=== PATIENT | male | born 1955 | race Caucasian/White ===

== ENCOUNTER 2017-10-05 06:12 | Day surgery (SDC) | payer MEDICARE ==
[~2017-10-05] VITALS: Ht 167.6 cm; Wt 77.1 kg
[~2017-10-05 06:12] MED LIST: ADLT ASA LOW81 MG PO; COREG3.125 MG PO; CRESTOR10 MG PO; GLYBURIDE5 MG PO; IPRATROPIU0.5 MG/3 M IN; JANUVIA50 MG PO; LEVEMIR FL100 UNIT/M SC; LYRICA50 MG PO; METFORMIN1000 MG PO; NITRO-BID2.5 M1 PO; NORCO1 TA1 PO; OMEPRAZOLE20 MG PO; PLAVIX75 MG PO; PROTONIX40 M2 PO; SYMBICORT 80-4.5MCG; TRAMADOL HCL50 MG PO; UNKNOWN INSULIN; ZESTRIL/PRI10 MG/TAB PO; [UNRECOGNIZED DRUG - OTHER] PO
[2017-10-05 08:57] VITALS: BP 104/64
== END 2017-10-05 09:13 | disposition home or self-care (01) ==
LOC: ENDO 06:12
PROVIDERS: ATTEND Internal Medicine Gastroenterology
PROC: 0DBN8ZX Excision of Sigmoid Colon, Via Natural or Artificial Opening Endoscopic, Diagnostic (ICD-10-PCS; principal; 2017-10-05)
PROC: 0DB58ZX Excision of Esophagus, Via Natural or Artificial Opening Endoscopic, Diagnostic (ICD-10-PCS; 2017-10-05)
DX: K22.70 Barrett's esophagus without dysplasia (principal); K21.0 Gastro-esophageal reflux disease with esophagitis; K29.70 Gastritis, unspecified, without bleeding; K44.9 Diaphragmatic hernia without obstruction or gangrene; K63.5 Polyp of colon; K64.8 Other hemorrhoids; K64.4 Residual hemorrhoidal skin tags; K76.0 Fatty (change of) liver, not elsewhere classified; I10 Essential (primary) hypertension; E11.9 Type 2 diabetes mellitus without complications; I25.10 Atherosclerotic heart disease of native coronary artery without angina pectoris; I25.2 Old myocardial infarction; J44.9 Chronic obstructive pulmonary disease, unspecified; Z86.010 Personal history of colon polyps; Z80.0 Family history of malignant neoplasm of digestive organs; Z95.1 Presence of aortocoronary bypass graft; Z95.5 Presence of coronary angioplasty implant and graft

== ENCOUNTER → 2018-06-12 | Outpatient (REF) | payer MEDICARE ==
[~2018-06-12] MED LIST changes: +SUCRALFATE1 GM PO
== END | disposition home or self-care (01) ==
LOC: STRESS 07:57 → NUCMED 08:15
PROVIDERS: ATTEND Internal Medicine
DX: I25.728 Atherosclerosis of autologous artery coronary artery bypass graft(s) with other forms of angina pectoris (principal); Z95.1 Presence of aortocoronary bypass graft; R00.2 Palpitations
CPT/HCPCS: A9502; J0706; J2785

== ENCOUNTER → 2018-06-27 | Outpatient (REF) | payer MEDICARE ==
[2018-06-27 12:43] LABS: HEMATOCRIT 43.7 % (39.0-50.0); IMMATURE GRANULOCYTES 1.5 % (0.0-5.0); MEAN CELL VOLUME 93.4 fL CALC (80.0-100.0); MEAN CORPUSCULAR HGB 30.6 pG CALC (26.0-32.0); MEAN CORPUSCULAR HGB CONC 32.7 g/L CALC (32.0-36.0); NEUT# 5.78 thou/uL (1.82-7.42); RED BLOOD COUNT 4.68 mill/uL (4.70-6.10); RED CELL DISTRI WIDTH 13.7 % (11.5-15.5)
[2018-06-27 12:45] LABS: HEMOGLOBIN 14.3 g/dl (14.0-18.0)
[2018-06-27 12:55] LABS: ACT PARTIAL THROMBO TIME 27.5 SECONDS (20.0-32.5); PROTHROMBIN TIME 10.2 SECONDS (9.0-12.5)
[2018-06-27 12:57] LABS: ALBUMIN 4.3 g/dL (3.2-5.0); ALKALINE PHOSPHATASE 73 u/l (38-126); ANION GAP 16 (6-22 (CALC)); BILIRUBIN, TOTAL 0.7 mg/dL (0.0-1.4); BUN 11 mg/dL (8-23); BUN/CREATININE RATIO 18 (12-20 (CALC)); CARBON DIOXIDE 29 mmol/l (22-30); CHLORIDE 96 mmol/l (95-108); CREATININE 0.6 mg/dL (0.7-1.3); GFR > 60 ML/MIN (>=60 (CALC)); GFR FOR AFR.AMER. > 60 ML/MIN (>=60 (CALC)); SGOT/AST 21 u/l (19-48); SODIUM 136 mmol/l (137-146); TOTAL PROTEIN 7.2 g/dL (6.3-8.2)
[2018-06-27 13:00] LABS: CHOLESTEROL HDL RATIO 2.6 (<4.4 (CALC))
[2018-06-27 13:30] LABS: TSH, 3RD GENERATION 1.56 uIU/mL (0.47 - 4.68)
== END | disposition home or self-care (01) ==
LOC: LAB 11:58
PROVIDERS: Internal Medicine; ATTEND Family Medicine
DX: E11.9 Type 2 diabetes mellitus without complications (principal); I10 Essential (primary) hypertension; F10.99 Alcohol use, unspecified with unspecified alcohol-induced disorder; I48.2 Chronic atrial fibrillation; I20.8 Other forms of angina pectoris

== ENCOUNTER 2019-05-22 11:02 | Inpatient (IN) | payer MEDICARE, MEDICAID ==
[~2019-05-22] VITALS: Ht 167.6 cm; Wt 73.5 kg
[~2019-05-22 11:02] MED LIST changes: -NITRO-BID2.5 M1 PO; +NITROSTAT0.4 MG SL; +OMEPRAZOLE10 MG PO; -OMEPRAZOLE20 MG PO; -SYMBICORT 80-4.5MCG; +SYMBICORT1 AE1 IN; -TRAMADOL HCL50 MG PO; +ULTRAM50 M1 PO
[2019-05-22 11:47] VITALS: BP 98/71
--- NOTE | 2019-05-22 12:00 | NUR ---
DIRECT ADMIT, PATIENT A/OX4, PATIENT NO S/S RESP DISTRESS, PATIENT ON ROOM AIR, PATIENT NO C/O PAIN, PATIENT HAS ULCER TO RIGHT FOOT, DRESSING CHANGE TO RIGHT FOOT, WOUND CULTURE SENT, INSERT NEW IV, PATIENT SCHEDULE FOR MRI OF RIGHT FOOT, WILL CONTINUE TO MONITOR, CALL LIGHT WITHIN REACH
[2019-05-22 12:17] LABS: HEMATOCRIT 37.9 % (39.0-50.0); HEMOGLOBIN 12.2 g/dl (14.0-18.0); IMMATURE GRANULOCYTES 0.5 % (0.0-5.0); MEAN CELL VOLUME 88.6 fL CALC (80.0-100.0); MEAN CORPUSCULAR HGB 28.5 pG CALC (26.0-32.0); MEAN CORPUSCULAR HGB CONC 32.2 g/L CALC (32.0-36.0); NEUT# 7.05 thou/uL (1.82-7.42); RED BLOOD COUNT 4.28 mill/uL (4.70-6.10); RED CELL DISTRI WIDTH 14.3 % (11.5-15.5)
[2019-05-22 12:55] LABS: ALBUMIN 3.6 g/dL (3.2-5.0); ALKALINE PHOSPHATASE 90 u/l (38-126); ANION GAP 15 (6-22 (CALC)); BILIRUBIN, TOTAL 0.4 mg/dL (0.0-1.4); BUN 6 mg/dL (8-23); BUN/CREATININE RATIO 10 (12-20 (CALC)); CARBON DIOXIDE 27 mmol/l (22-30); CHLORIDE 96 mmol/l (95-108); CREATININE 0.6 mg/dL (0.7-1.3); GFR > 60 ML/MIN (>=60 (CALC)); GFR FOR AFR.AMER. > 60 ML/MIN (>=60 (CALC)); POTASSIUM 5.1 mmol/l (3.5-5.1); SGOT/AST 20 u/l (19-48); SODIUM 132 mmol/l (137-146); TOTAL PROTEIN 6.8 g/dL (6.3-8.2)
--- NOTE | 2019-05-22 13:42 | NUR ---
S: SORAYA GRAHAM is a 63 M who presents with right foot wound. He has a history of IDDM, HTN, CAD, COPD/EMPHYSEMA. All medications in patient's chart were reviewed. O: VS: BP: 98/71mmHg, P: 98 bpm, RR: 18 breaths/min, T: 97.9 W: 73.482 kg, HT: 66 in, Scr: 0.6 mg/dL, CrCl: 132.67 ml/min A: Wound culture is pending. P: Patient is on Cefepime 2 gm IV Q8H. Vancomycin ordered for pharmacy to dose. Start Vancomycin 1250mg IV Q12H. Vancomycin trough is drawn before the 4th dose on 05-24-19 at 01:30. Vancomycin goal trough is between 15-20 mcg/ml. Pharmacy will follow and or advise on antibiotics use as needed.
[2019-05-22 15:00] VITALS: BP 103/62
[2019-05-22 16:12] LABS: URINE BILIRUBIN - DIPSTICK NEGATIVE (NEGATIVE); URINE BLOOD DIPSTICK NEGATIVE (NEGATIVE); URINE COLOR YELLOW; URINE GLUCOSE - DIPSTICK NEGATIVE (NEGATIVE); URINE KETONE NEGATIVE (NEGATIVE); URINE LEUK ESTERASE NEGATIVE (NEGATIVE); URINE NITRITE - DIPSTICK NEGATIVE (Negative); URINE PROTEIN - DIPSTICK NEGATIVE (NEG-TRACE)
--- NOTE | 2019-05-22 17:00 | NUR ---
PATIENT A/OX4, NO C/O PAIN, NO S/S RESP DISTRESS, PATIENT TOLERATED IV ANTIBOTICS, WILL CONTINUE TO MONITOR PATIENT, CALL LIGHT WITHIN REACH
[2019-05-22 19:10] VITALS: BP 124/78
--- NOTE | 2019-05-22 19:30 | NUR ---
CHANGE OF SHIFT REPORT RECEIVED FROM MANJINDER ESCAMILLA. PT IN ROOM, ABLE TO MAKE NEEDS KNOWN. NO S/S OF DISTRESS
--- NOTE | 2019-05-23 | NUR ---
PATIENT RESTING COMFORTABLY. NO S/S OF DISTRESS
[2019-05-23 04:05] VITALS: BP 120/68
--- NOTE | 2019-05-23 04:24 | NUR ---
PATIENT RESTING COMFORTABLY. NO S/S OF DISTRESS. CRIMPING PRESS OPERATOR WILL CONTINUE TO MONITOR
[2019-05-23 07:45] VITALS: BP 144/78
--- NOTE | 2019-05-23 09:00 | NUR ---
PATIENT A/OX4, NO C/O PAIN, NO S/S RESP DISTRESS, PATIENT ON ROOM AIR, PATIENT C/O PAIN RIGHT FOOT TREAT PATIENT PAIN PER MD ORDERS, WILL REASSES PAIN LEVEL, CHANGED DRESSING OF RIGHT FOOT ULCER, PATIENT BLOOD GLUCOSE WAS ELEVATED, CALL LIGHT WITHIN REACH
--- NOTE | 2019-05-23 12:46 | NUR ---
PATIENT A/O X4, NO C/O PAIN AFTER PRN MED WAS GIVEN, NO S/S RESP DISTRESS, PATIENT RIGHT FOOT IS ELEVATED, CALL LIGHT WITHIN REACH
[2019-05-23 14:40] VITALS: BP 118/70
[2019-05-23] MEDS ORDERED: CRESTOR10 MG PO (16:55)
[2019-05-23] MEDS ORDERED: VICTOZA18 MG/3 ML SC (16:55)
[2019-05-23] MEDS ORDERED: PROAIR HFA IN (16:56)
[2019-05-23 19:00] VITALS: BP 131/72
--- NOTE | 2019-05-23 19:05 | NUR ---
REPORT RECEIVED FROM MANJINDER ESCAMILLA. PT RESTING IN BED, NO S/S OF DISTRESS AT THIS TIME. WILL CONTINUE TO MONITOR.
--- NOTE | 2019-05-23 19:36 | NUR ---
PT RESTING IN BED, ALERT AND ORIENTED. RESPIRATIONS EVEN AND UNLABORED. WHEEZES NOTED IN UPPER LUNGS. PT DENIES ANY PAIN OR DISCOMFORT AT THIS TIME. PEDAL PULSES WEAK. PT PROVIDED WITH COFFEE PER REQUEST. SAFETY PRECAUTIONS IN PLACE. WILL CONTINUE TO MONITOR.
--- NOTE | 2019-05-24 00:12 | NUR ---
PT WATCHING TV, NO S/S OF DISTRESS AT THIS TIME, PT DENIES ANY PAIN OR DISCOMFORT. SAFETY PRECAUTIONS IN PLACE. WILL CONTINUE TO MONITOR.
--- NOTE | 2019-05-24 04:05 | NUR ---
PT RESTING IN BED. NO S/S OF DISTRESS AT THIS TIME. SAFETY PRECAUTIONS IN PLACE. WILL CONTINUE TO MONITOR.
[2019-05-24 04:40] VITALS: BP 123/59
[2019-05-24 06:28] LABS: HEMATOCRIT 35.1 % (39.0-50.0); HEMOGLOBIN 11.3 g/dl (14.0-18.0); MEAN CELL VOLUME 89.1 fL CALC (80.0-100.0); MEAN CORPUSCULAR HGB 28.7 pG CALC (26.0-32.0); MEAN CORPUSCULAR HGB CONC 32.2 g/L CALC (32.0-36.0); RED BLOOD COUNT 3.94 mill/uL (4.70-6.10); RED CELL DISTRI WIDTH 14.3 % (11.5-15.5)
[2019-05-24 06:41] LABS: BUN 6 mg/dL (8-23); BUN/CREATININE RATIO 13 (12-20 (CALC)); CALCULATED LDLCHOLESTEROL 65 mg/dL (62-129 (CALC)); CARBON DIOXIDE 28 mmol/l (22-30); CHLORIDE 102 mmol/l (95-108); CHOLESTEROL HDL RATIO 2.7 (<4.4 (CALC)); CREATININE 0.5 mg/dL (0.7-1.3); GFR > 60 ML/MIN (>=60 (CALC)); GFR FOR AFR.AMER. > 60 ML/MIN (>=60 (CALC)); HDL CHOLESTEROL 47 mg/dL (>=40); MAGNESIUM 1.4 mg/dL (1.6-2.3); SODIUM 135 mmol/l (137-146); TOTAL CHOLESTEROL 126 mg/dl (0-199); TOTAL TRIGLYCERIDES 71 mg/dl (30-149); VLDL CHOLESTROL 14 mg/dl (4-45 (CALC))
[2019-05-24 06:46] LABS: ANION GAP 9 (6-22 (CALC)); POTASSIUM 3.9 mmol/l (3.5-5.1)
[2019-05-24 06:58] LABS: ALBUMIN 2.9 g/dL (3.2-5.0); C-REACTIVE PROTEIN 2.6 mg/dL (0-0.9); TOTAL PROTEIN 5.9 g/dL (6.3-8.2)
[2019-05-24 06:59] LABS: BILIRUBIN, TOTAL 0.2 mg/dL (0.0-1.4)
[2019-05-24 07:55] VITALS: BP 115/68
--- NOTE | 2019-05-24 07:55 | NUR ---
PATIENT ASLEEP ON ROUNDS. AWAKENS TO NAME. NO COMPLAINTS OF ANY PAIN OR DISCOMFORTS. RESP NON-LABORED. MOIST, NON-PRODUCTIVE COUGH PRESENT. BREATH SOUNDS DIMINISHED AND SLT COARSE. RT FOTT DSG CDI. SALINE LOCK IN , SITE BENIGN. DISCUSSED PLAN OF CARE. DENIES NEEDS AT THS TIME. CALL BO IN REACH.
[2019-05-24 08:00] VITALS: BP 115/68
--- NOTE | 2019-05-24 12:05 | NUR ---
PATIENT FOUND WITH LH SALINE LOCK DILODGED WITH CATHETER INTACT. NEW SALINE LOCK STARTED IN LAC X1 ATTEMPT.
--- NOTE | 2019-05-24 14:00 | NUR ---
FAMILY VISITING PATIENT RESTING WITHOUT COMPLAINTS.
[2019-05-24 15:05] VITALS: BP 117/66
--- NOTE | 2019-05-24 16:00 | NUR ---
RIGHT FOOT DRESSING CHANGED PER DRS ORDERS. SMALL AMOUNT OF ESTRELLA DRAINAGE NOTED ON OLD DSG. WOUND RINSED WITH NS AND PATTED DRY. WOUND BED WHITE, NO ODOR NOTED. NICKEL THICK SANTYL OINT APPLIED TO WOUND BED WITH STERILE COTTON APPLICATOR. COVERED WITH 4X4 LIGHTLY MOISTENED WITH NS COVERED WITH ABD AND SECURED WITH LIZETH. PATIENT TOLERATED DSG CHANGED WELL. CALL TO DR ZABALA TO INFORM OF DSG CHANGE AND WOUND STATUS.
[2019-05-24 18:40] VITALS: BP 130/72
--- NOTE | 2019-05-24 19:05 | NUR ---
REPORT RECEIVED FROM MANJINDER WORRELL. PT RESTING IN BED. NO S/S OF DISTRESS AT THIS TIME. SAFETY PRECAUTIONS IN PLACE. WILL CONTINUE TO MONITOR.
--- NOTE | 2019-05-24 19:45 | NUR ---
PT RESTING IN BED, ALERT AND ORIENTED. RESPIRATIONS EVEN AND UNLABORED ON RA. LUNGS SOUND DIMINISHED. PT DENIES ANY PAIN OR DISCOMFORT AT THIS TIME. SAFETY PRECAUTIONS IN PLACE. WILL CONTINUE TO MONITOR
--- NOTE | 2019-05-25 00:13 | NUR ---
PT RESTING IN BED NO S/S OF DISTRESS AT THIS TIME. SAFETY PRECAUTIONS IN PLACE. WILL CONTINUE TO MONITOR.
--- NOTE | 2019-05-25 04:15 | NUR ---
PT RESTING IN BED. RESPIRATONS EVEN AND UNLABORED ON RA. NO S/S OF DISTRESS AT THIS TIME.
[2019-05-25 04:21] VITALS: BP 135/57
[2019-05-25 04:47] LABS: HEMATOCRIT 36.4 % (39.0-50.0); HEMOGLOBIN 11.6 g/dl (14.0-18.0); MEAN CELL VOLUME 90.8 fL CALC (80.0-100.0); MEAN CORPUSCULAR HGB 28.9 pG CALC (26.0-32.0); MEAN CORPUSCULAR HGB CONC 31.9 g/L CALC (32.0-36.0); RED BLOOD COUNT 4.01 mill/uL (4.70-6.10); RED CELL DISTRI WIDTH 14.3 % (11.5-15.5)
[2019-05-25 05:03] LABS: ANION GAP 11 (6-22 (CALC)); BUN 7 mg/dL (8-23); BUN/CREATININE RATIO 17 (12-20 (CALC)); CARBON DIOXIDE 26 mmol/l (22-30); CHLORIDE 100 mmol/l (95-108); CREATININE 0.4 mg/dL (0.7-1.3); GFR > 60 ML/MIN (>=60 (CALC)); GFR FOR AFR.AMER. > 60 ML/MIN (>=60 (CALC)); MAGNESIUM 1.6 mg/dL (1.6-2.3); POTASSIUM 4.2 mmol/l (3.5-5.1); SODIUM 133 mmol/l (137-146)
[2019-05-25 09:34] VITALS: BP 127/66
[2019-05-25 15:50] VITALS: BP 139/83
--- NOTE | 2019-05-25 17:35 | NUR ---
HEAD TO TOE COMPLETED. POC REVIEWED PATIENT. PATIENT VERBALIZED UNDERSTANDIG.NO C/O PAIN TODAY. NO NEW SKIN ISSUES. WOUND CARE PROVIDED. NO S/S OF RESP DISTRESS. POSTIVE FOR BOWEL SOUNDS
--- NOTE | 2019-05-25 17:52 | NUR ---
WOUNDCARE PROVIDED TO PATIENT RIGHT FOOT AND DOOPLER USED TO CHECK FOR A PULSE PER ORDER
[2019-05-25 19:14] VITALS: BP 131/81
--- NOTE | 2019-05-25 19:42 | NUR ---
PT. SITTING UP WATCHING TV, NO DISTRESS NOTED; DENIES NEEDS/PAIN. ASSESSMENT COMPLETED. DRESSING TO RIGHT FOOT CDI; IV SITE PATENT AND SL. ENCOURAGED TO CALL FOR ANY NEEDS. CALL LIGHT IS IN REACH.
--- NOTE | 2019-05-25 23:08 | NUR ---
PT. RESTING IN BED WITH EYES CLOSED; RESP. EVEN AND UNLABORED.
[2019-05-26 03:35] VITALS: BP 107/58
--- NOTE | 2019-05-26 03:40 | NUR ---
EMERGENCY COMMUNICATIONS DISPATCHER IN AT BEDSIDE OBTAINING VS. NO DISTRESS NOTED; DENIES NEEDS. CALL LIGHT IS IN REACH.
[2019-05-26 05:18] LABS: HEMOGLOBIN 11.3 g/dl (14.0-18.0); MEAN CELL VOLUME 89.3 fL CALC (80.0-100.0); MEAN CORPUSCULAR HGB 28.8 pG CALC (26.0-32.0); MEAN CORPUSCULAR HGB CONC 32.3 g/L CALC (32.0-36.0); RED BLOOD COUNT 3.92 mill/uL (4.70-6.10); RED CELL DISTRI WIDTH 14.2 % (11.5-15.5)
[2019-05-26 05:36] LABS: ANION GAP 10 (6-22 (CALC)); BUN 7 mg/dL (8-23); BUN/CREATININE RATIO 17 (12-20 (CALC)); CARBON DIOXIDE 28 mmol/l (22-30); CHLORIDE 101 mmol/l (95-108); CREATININE 0.4 mg/dL (0.7-1.3); GFR > 60 ML/MIN (>=60 (CALC)); GFR FOR AFR.AMER. > 60 ML/MIN (>=60 (CALC)); SODIUM 135 mmol/l (137-146)
--- NOTE | 2019-05-26 05:46 | NUR ---
SCHED ANTIBIOTIC HUNG. DENIES NEEDS/PAIN. CALL LIGHT IS IN REACH.
[2019-05-26 07:50] VITALS: BP 137/64
--- NOTE | 2019-05-26 08:00 | NUR ---
PATIENT A/OX4, NO C/O PAIN, NO C/O PAIN IN RIGHT FOOT, NO S/S RESP DISTRESS, PATIENT ON ROOM AIR, PATIENT ON ANTIBOTICS FOR INFECTED RIGHT FOOT WOUND, PATIENT TOLERATING ANTIBOTICS, WILL CONTINUE TO MONITOR PATIENT, CALL LIGHT WITHIN REACH
--- NOTE | 2019-05-26 09:50 | NUR ---
PATIENT A/OX4, NO S/S RESP DISTRESS, NO C/O PAIN, ASSISTED DR. BERG WITH DRESSING CHANGE TO RIGHT FOOT, PATIENT TOLERATING DRESSING CHANGE WITHOUT C/O PAIN, NEW PHOTO OF RIGHT FOOT IN CHART, WILL CONTINUE TO MONITOR PATIENT, CALL LIGHT WITHIN REACH
--- NOTE | 2019-05-26 11:10 | NUR ---
PATIENT A/OX4, NO C/O PAIN, NO S/S RESP DISTRESS, PATIENT ON ROOM AIR, PATIENT HAS NO C/O PAIN OF RIGHT FOOT ULCER, PATIENT BLOOD GLUCOSE 166, PATIENT ON ANTIBOTICS FOR ECOLI IN THE WOUND, WILL CONTINUE TO MONITOR PATIENT CALL LIGHT WITHIN REACH
[2019-05-26] MEDS ORDERED: AUGMENTIN XR PO (14:03)
[2019-05-26 16:30] VITALS: BP 132/66
--- NOTE | 2019-05-26 16:45 | NUR ---
PATIENT A/OX4, NO C/O PAIN, NO S/S RESP DISTRESS, PATIENT ON ROOM AIR, PATIENT DISCHANGE TO HOME WITH HOME HEALTH, EDUCATED THE PATIENT DISCHARGED INSTRUCTIONS, PROVIDED PATIENT WITH WRITTEN EDUCATIONAL MATERIAL, PATIENT UNDERSTOOD DISCHARGED INSTRUCTIONS, ASSISTED PATIENT OFF FLOOR VIA WHEELCHAIR, PATIENT WAS ACCOMPANIED BY SIGNIFICANT OTHER
[2019-11-25] MEDS ORDERED: HYDROCODONE/ACE1 TAB PO (12:46)
== END 2019-05-26 17:00 | disposition home health service (06) | DRG 300 ==
LOC: MS2 11:02
PROVIDERS: Internal Medicine Infectious Disease; Nurse Practitioner Family; ADMIT Internal Medicine; ATTEND Internal Medicine
PROC: 0HBMXZZ Excision of Right Foot Skin, External Approach (ICD-10-PCS; principal; 2019-05-23)
DX: E11.52 Type 2 diabetes mellitus with diabetic peripheral angiopathy with gangrene (principal); I96 Gangrene, not elsewhere classified; L97.419 Non-pressure chronic ulcer of right heel and midfoot with unspecified severity; L03.115 Cellulitis of right lower limb; E11.621 Type 2 diabetes mellitus with foot ulcer; E11.65 Type 2 diabetes mellitus with hyperglycemia; I11.0 Hypertensive heart disease with heart failure; I50.9 Heart failure, unspecified; I25.10 Atherosclerotic heart disease of native coronary artery without angina pectoris; J43.9 Emphysema, unspecified; E11.42 Type 2 diabetes mellitus with diabetic polyneuropathy; E78.5 Hyperlipidemia, unspecified; F17.200 Nicotine dependence, unspecified, uncomplicated; B96.20 Unspecified Escherichia coli [E. coli] as the cause of diseases classified elsewhere; Z95.1 Presence of aortocoronary bypass graft; Z95.5 Presence of coronary angioplasty implant and graft; Z95.810 Presence of automatic (implantable) cardiac defibrillator; Z79.4 Long term (current) use of insulin
CPT/HCPCS: J0692; J3370; J3475; Q3014

== ENCOUNTER 2019-06-16 09:45 | Inpatient (IN) | payer MEDICARE, MEDICAID ==
[~2019-06-16] VITALS: Ht 167.6 cm; Wt 76.0 kg
[~2019-06-16 09:45] MED LIST changes: +AUGMENTIN XR PO; +PROAIR HFA IN; +VICTOZA18 MG/3 ML SC
--- NOTE | 2019-06-16 10:17 | NUR ---
Pt to room # 6 for bedside triage
[2019-06-16 10:59] LABS: HEMATOCRIT 38.5 % (39.0-50.0); HEMOGLOBIN 12.5 g/dl (14.0-18.0); IMMATURE GRANULOCYTES 0.4 % (0.0-5.0); MEAN CELL VOLUME 87.3 fL CALC (80.0-100.0); MEAN CORPUSCULAR HGB 28.3 pG CALC (26.0-32.0); MEAN CORPUSCULAR HGB CONC 32.5 g/L CALC (32.0-36.0); NEUT# 7.9 thou/uL (1.82-7.42); RED BLOOD COUNT 4.41 mill/uL (4.70-6.10); RED CELL DISTRI WIDTH 14.5 % (11.5-15.5)
[2019-06-16 11:10] LABS: ANION GAP 12 (6-22 (CALC)); BUN 6 mg/dL (8-23); BUN/CREATININE RATIO 10 (12-20 (CALC)); CARBON DIOXIDE 30 mmol/l (22-30); CHLORIDE 95 mmol/l (95-108); CREATININE 0.6 mg/dL (0.7-1.3); GFR > 60 ML/MIN (>=60 (CALC)); GFR FOR AFR.AMER. > 60 ML/MIN (>=60 (CALC)); POTASSIUM 4.7 mmol/l (3.5-5.1); SODIUM 133 mmol/l (137-146)
--- NOTE | 2019-06-16 11:10 | NUR ---
PT RESTING ON STRETCHER; NO S/S OF DITRESS NOTED; RIGHT LEG [id number]
[2019-06-16] MEDS ORDERED: CARAFATE1 G1 PO (11:17)
--- NOTE | 2019-06-16 12:05 | NUR ---
PT MEDICATED PER MAR FOR PAIN TO RIGHT FOOT RATING 6 OUT OF 10; MONITORING DEVICES IN PLACE; VSS; CALL LIGHT WITHIN REACH;WILL CONTINUE TO MONITOR
--- NOTE | 2019-06-16 13:00 | NUR ---
PTRESTING ON STRETCHER; STATES PAIN IS 4 OUT OF 10; VSS;PT ADVISED OF CONTINUED WAIT TIME FOR ADMISSION; CALL LIGHT WITHIN REACH; WILL CONTINUE TO MONITOR
--- NOTE | 2019-06-16 13:41 | NUR ---
PACEMAKER INTEROGATED AT THIS TIME AT BEDSIDE
[2019-06-16 14:00] VITALS: BP 125/63
--- NOTE | 2019-06-16 14:00 | NUR ---
Admission Note Report Given to: MANJINDER RUCKER Transported by: X Wheelchair Stretcher Transported with: X Nurse Transporter X Patent IV O2 X Buildings And Grounds Director Location: ICU X MS2
--- NOTE | 2019-06-16 14:13 | NUR ---
I LEFT A DETAILED MESSAGE WITH A DIRECT CALL BACK NUMBER TO DR. VOSS OFFICE. I AM WAITING FOR SOMEONE TO CALL ME BACK TO VERIFY THE CONSULTATION ORDERED FOR THIS PT. I CALLED #[phone].
--- NOTE | 2019-06-16 15:00 | NUR ---
PT ARRIVES TO ROOM 289 FROM ER ACCOMPANIED BY DAVID DUNBAR. PT IS ALERT AND ORIENTED X 3, ACCOMPANIED BY HIS GIRLFRIEND. RIGHT FOOT SITE APPEARS DRY, NOT REDDENED SIGNIFICANTLY AROUND CIRCUMFERENCE. NO PAIN PER NEUROPATHY, PT STATES.
--- NOTE | 2019-06-16 15:24 | NUR ---
I SPOKE WITH @0011 ABOUT THE CONSULTATION ORDERED FOR RIGHT LOWER EXTREMITY CELLULITUS. HE VERBALLY STATED THAT HE WAS AWARE OF THE CONSULTATION AND WOULD SEE HIM TOMORROW 06/17/19 AT SOME POINT IN THE DAY. I CALLED HIS DIRECT CELL #[phone].
--- NOTE | 2019-06-16 17:54 | NUR ---
PT RESTS IN THE BED, NO DISTRESS, NO COMPLAINTS.
[2019-06-16 19:04] VITALS: BP 132/56
--- NOTE | 2019-06-16 21:54 | NUR ---
PATIENT RESTING IN BED AT THIS TIME. MEDICATED WITH SONATA 5MG PO FOR SLEEP. ACCU-CHECK TONIGHT IS 126-NO COVERAGE REQUIRED AND PATIENT ALSO REFUSED LEVEMIR-"STATES THAT HE DOESN'T WANT TO GO TOO LOW". PATIENT ALSO OFFERED TYLENOL FOR LEFT HIP PAIN-PATIENT ALSO REFUSED TYLENOL AND STATES "IT DOESN'T DO ANYTHING FOR PAIN. OFFERED HOT OR COLD PACK-PATIENT ALSO REFUSED THESE. SAFETY PRECAUTIONS REINFORCED. CALL LIGHT IN REACH. WILL CONT TO MONITOR.
--- NOTE | 2019-06-17 00:02 | NUR ---
PATIENT RESTING IN BED-APPEARS SLEEPING WITH EYES CLOSED. RESPS ARE EVEN AND UNLABORED. IVF PATENT WITH ZOSYN INFUSING AT THIS TIME VIA LEFT AC SITE. TELE MONITOR IN PLACE. VOIDING QS CLEAR YELLOW URINE IN URINAL. CALL LIGHT IN REACH. WILL CONT TO MONITOR.
[2019-06-17 00:15] VITALS: BP 119/56
[2019-06-17 04:00] VITALS: BP 130/75
--- NOTE | 2019-06-17 04:30 | NUR ---
PATIENT RESTING IN BED WATCHING TV AT THISTIME. TELE MONITOR IN PLACE. IV SITE TO LEFT AC INTACT WITH IVF NS PATENT ANDINFUSING AT 100CC/HR. SAFETY PRECAUTIONS REINFORCED. CALL LIGHT IN REACH. WILL CONT TO MONITOR.
[2019-06-17 08:00] VITALS: BP 134/72
--- NOTE | 2019-06-17 09:00 | NUR ---
PT AT REST IN THE BED, NO DISTRESS. LUNGS CLEAR, RA. RIGHT FOOT WOUND IS DRY, NO PAIN OR DRAINAGE FROM SAME. GIRLFRIEND AT BEDSIDE.
[2019-06-17 10:40] VITALS: BP 133/74
--- NOTE | 2019-06-17 15:41 | NUR ---
S: SORAYA GRAHAM is a 63 M who presents with cellulitis. He has a history of type 2 diabetes, COPD, emphysema, hypertension, neuropathy, and cellulitis. All medications in patient's chart were reviewed. O: VS: BP 133/74mmHg, P 73 bpm, RR 19 breaths/min,T 97.4 degrees F W 76.005 kg, HT 167.64 cm, Scr= 0.6 L,CrCl= 137 ml/min A: Blood cultures preliminary show no growth after 24 hours. P: Patient is on zosyn 3.375 gm q6h Vancomycin ordered for pharmacy to dose. Start Vancomycin 1,250 mg IV q12h @ 1000, 2200 Vancomycin trough is drawn before the 4th dose on 06/18/19 at 2130. Vancomycin goal trough is between 10-15 mcg/ml. Pharmacy will follow and or advise on antibiotics use as needed.
--- NOTE | 2019-06-17 16:15 | NUR ---
PT HAS BEEN TO CT AND BACK FOR RIGHT FOOT EVALUATION. PT PROVIDED PERCOCET FOR PAIN RELIEF RECENTLY.
[2019-06-17 16:16] VITALS: BP 145/78
--- NOTE | 2019-06-17 19:30 | NUR ---
PATIENT RESTING IN BED AT THIS TIME WATCHING TV. AWAKE ALERT AND ORIENTEDX3. PATIENT PLATINUM EVEN WITH HEARING AIDS. TELE MONITOR IN PLACE. IVF PATENT AND INFUSING VIA LEFT AC SITE ORDERED. SITE IS HEALTHY AT THIS TIME. RIGHT FOOT DRESSING IS CDI AT THIS TIME. VOIDING QS YELLOW URINE IN URINAL. SAFETY PRECAUTIONS REINFORCED. CALL LIGHT IN REACH. WILL CONT TO MONITOR.
[2019-06-17 19:54] VITALS: BP 127/75
--- NOTE | 2019-06-17 21:45 | NUR ---
PATIENT RESTING IN BED WATCHING [id number]-COVERED WITH NOVALOG 3UNITS PER SS COVERAGE PROTOCOL AND GIVEN LEVEMIR 30UNITS SQ ORDERED. PATIENT MEDICATED FOR RIGHT FOOT PAIN WITH PERCOCET AND FOR SLEEP WITH SONATA. CALL LIGHT IN REACH. WILL CONT TO MONITOR.
[2019-06-18] VITALS (8 sets, daily range): BP systolic 99–177; BP diastolic 65–94
--- NOTE | 2019-06-18 01:16 | NUR ---
PATIENT APPEARS SLEEPING AT THIS TIME. RESP EVEN AND UNLABORED. TELE MONITOR IN PLACE. CALL LIGHT IN REACH. WILL CONT TO MONITOR.
--- NOTE | 2019-06-18 04:33 | NUR ---
PATIENT APPEARS SLEEPING AT THIS TIME WITH EYES CLOSED. RESPS ARE EVEN AND UNLABORED. TELE MONITOR IN PLACE. DRESSING TO RIGHT FOOT INTACT. IVF PATENT AND INFUSING VIA LEFT AC SITE. SITE APPEARS HEALTHY AT THIS TIME. CALL LIGHT IN REACH. WILL CONT TO MONITOR.
[2019-06-18 05:37] LABS: HEMATOCRIT 33.3 % (39.0-50.0); MEAN CELL VOLUME 90.7 fL CALC (80.0-100.0); MEAN CORPUSCULAR HGB 28.6 pG CALC (26.0-32.0); MEAN CORPUSCULAR HGB CONC 31.5 g/L CALC (32.0-36.0); RED BLOOD COUNT 3.67 mill/uL (4.70-6.10)
[2019-06-18 05:41] LABS: HEMOGLOBIN 10.5 g/dl (14.0-18.0)
[2019-06-18 06:09] LABS: BUN 9 mg/dL (8-23); BUN/CREATININE RATIO 16 (12-20 (CALC)); CARBON DIOXIDE 26 mmol/l (22-30); CREATININE 0.5 mg/dL (0.7-1.3); GFR > 60 ML/MIN (>=60 (CALC)); GFR FOR AFR.AMER. > 60 ML/MIN (>=60 (CALC)); SODIUM 138 mmol/l (137-146)
[2019-06-18 06:38] LABS: ANION GAP 9 (6-22 (CALC)); CHLORIDE 107 mmol/l (95-108); POTASSIUM 3.7 mmol/l (3.5-5.1)
--- NOTE | 2019-06-18 07:30 | NUR ---
PATIENT A/OX4, NO S/S RESP DISTRESS, PATIENT ON ROOM AIR, PATIENT C/O 5/10 PAIN IN RIGHT FOOT TREATED PATIENT PAIN PER MD ORDERS, PATIENT HEART RHYTHM IS PACED WITH PVC, DRESSING TO RIGHT FOOT DRY CLEAN AND INTACT, IVF INFUSING VIA IV WITHOUT COMPLICATIONS, WILL CONTINUE TO MONITOR PATIENT, CALL LIGHT WITHIN REACH
--- NOTE | 2019-06-18 12:00 | NUR ---
PATIENT A/0X4, NO S/S RESP DISTRESS, PATIENT ON ROOM AIR, PATIENT C/O 07/24 PAIN TO RIGHT FOOT WITH MOVEMENT, PATIENT C/O CONSTIPATION TREATED PATIENT WITH MOM, PATIENT LAST BOWEL MOVEMENT 06/15/19, PATIENT IS STAND BY ASSIST TO RESTROOM, RIGHT LEG IS ELEVATED, WILL CONTINUE TO MONITOR PATIENT, CALL LIGHT WITHIN REACH
--- NOTE | 2019-06-18 14:01 | NUR ---
CALLED DR. EASTMAN OFFICE REGARDING CONSULTATION FOR CARDIAC CLEARANCE. SPOKE TO KRYSTAL GAVE INFORMATION STATED SHE WILLGIVE HIM THE MESSAGE.
--- NOTE | 2019-06-18 17:30 | NUR ---
PATIENT A/OX4, PATIENT C/O 09/23 PAIN TO RIGHT FOOT, NOTIFIED PNEUMATIC TOOL REPAIRER ABOUT PATIENT PAIN LEVEL, PNEUMATIC TOOL REPAIRER CHANGED PERCOCET PO Q6 PRN TO PERCOCET PO Q4 PRN FOR PAIN, PATIENT BLOOD GLUCOSE 303 TREATED PATIENT PAIN PER MD ORDERS, URINE OBTAIN FOR DRUG TEST PER MD ORDERS,PATIENT HAD AN LARGE BOWEL MOVEMENT AFTER MOM WAS GIVEN, PATIENT RIGHT FOOT WARM TO TOUCH AND SWOLLEN NOTIFIED PNEUMATIC TOOL REPAIRER PATIENT RIGHT FOOT IS ELEVATED, WILL CONTINUE TO MONITOR PATIENT, CALL LIGHT WITHIN REACH
--- NOTE | 2019-06-18 20:30 | NUR ---
PATIENT RESTING IN BED-EASY TO AROUSE. ALERT AND ORIENTEDX3. IVF NS PATENT AND INFUSING VIA LEFT AC SITE AT 100CC/HR. TELE MONITOR IN PLACE. [id number]. PATIENT GIVEN LEVEMIR 30UNITS ORDERED AND NOVALOG 3UNITS FOR SS COVERAGE. HS SNACK PROVIDED. DRESSING TO RIGHT FOOT IS DRY AND INTACT. SAFETY PRECAUTIONS REINFORCED. CALL LIGHT IN REACH. WILL CONT TO MONITOR.
[2019-06-18 20:41] LABS: BARBITURATES NEGATIVE (NEGATIVE); COCAINE NEGATIVE (NEGATIVE); METHADONE NEGATIVE (NEGATIVE); OXCYCODONE POSITIVE (NEGATIVE); TETRAHYDROCANNABIONOL NEGATIVE (NEGATIVE); TRICYLIC ANTIDEPRESSANTS NEGATIVE (NEGATIVE)
--- NOTE | 2019-06-18 22:05 | NUR ---
APPEARS SLEEPING AT THIS TIME WITH EYES CLOSED. RESP ARE EVEN AND UNLABORED AT THIS TIME. TELE MONITOR IN PLACE. AWAITING VANCO TROUGH RESULTS. CALL LIGHT IN REACH. WILL CONT TO MONITOR.
[2019-06-19] VITALS (11 sets, daily range): BP systolic 120–158; BP diastolic 65–88
--- NOTE | 2019-06-19 02:38 | NUR ---
PATIENT APPEARS SLEEPING AT THIS TIME WITH HOB ELEVATED AND EYES CLOSED. RESPS ARE EVEN AND UNLABORED. TELE MONITOR IN PLACE. NPO FOR OR TODAY. IVF NS PATENT AND INFUSING VIA LAC SITE AT 100CC/HR. SITE IS HEALTHY. VOIDING QS YELLOW URINE IN URINAL. CALL LIGHT IN REACH. WILL CONT TO MONITOR.
--- NOTE | 2019-06-19 03:59 | NUR ---
PATIENT RESTING IN BED WITH HOB ELEVATED AND EYES CLOSED. RESP ARE EVEN AND UNLABORED. TELE MONITOR IN PLACE. IVF PATENT AND INFUSING VIA LAC SITE AT 100CC/HR. NPO OFOR OR TODAY. CALL LIGHT IN REACH. WILL CONT TO MONITOR.
--- NOTE | 2019-06-19 08:33 | NUR ---
PATIENT A/OX4, NO S/S RESP DISTRESS, PATIENT C/O OF 6/10 PAIN TO RIGHT FOOT, PATIENT BEEN NPO FROM MIDNIGHT, CALL OR SPOKE TO SEBASTIEN OR STAFF OK FOR PATIENT TO RECIEVED PAIN MED, PATIENT HAS PACEMAKER PATIENT PACED WITH PVC, PATIENT BLOOD GLUCOSE 115, PATIENT LAST BOWEL MOVEMENT 06/18/19, PATIENT SCHEDULE TO GO TO OR AT NOON PATIENT AWARE, ALLERGY BAND ON IV PATENT, IVF INFUSING WITHOUT COMPLICATIONS, WILL CONTINUE TO MONITOR, CALL LIGHT WITHIN REACH
[2019-06-19 08:40] LABS: URINE BILIRUBIN - DIPSTICK NEGATIVE (NEGATIVE); URINE BLOOD DIPSTICK NEGATIVE (NEGATIVE); URINE CLARITY CLEAR; URINE COLOR YELLOW; URINE GLUCOSE - DIPSTICK 100 mg/dL (NEGATIVE); URINE KETONE TRACE mg/dL (NEGATIVE); URINE LEUK ESTERASE NEGATIVE (Negative); URINE NITRITE - DIPSTICK NEGATIVE (Negative); URINE PROTEIN - DIPSTICK NEGATIVE (NEG-TRACE); URINE SPECIFIC GRAVITY 1.025; URINE UROBILINOGEN - DIPSTICK 0.2 E.U./dL (0.2)
--- NOTE | 2019-06-19 11:09 | NUR ---
PATIENT A/OX4, NO C/O PAIN, NO S/S RESP DISTRSS, PATIENT ON ROOM AIR, PATIENT HEART RHYTHM PACED, OR NURSES AT BEDSIDE TO TAKE PATIENT TO OR, NOTIFIED OR NURSES PATIENT HAS HEARING AIDS IN, OR NURSES REMOVED TELE NOTIFIED DESIGN INTERN IN ER, PATIENT LEFT FLOOR VIA STRETCHER WITH OR NURSES ACCOMPANIED BY SIGNIFICANT OTHER
--- NOTE | 2019-06-19 14:00 | NUR ---
PATIENT RETURN TO FLOOR FROM OR, PATIENT A/OX4, NO S/S RESP DISTRESS, PATIENT C/O PAIN TO RIGHT FOOT TREATED PATIENT PAIN PER MD ORDERS, PATIENT WOUND VAC TO RIGHT FOOT FUNCTIONING, PATIENT RIGHT ELEVATED AND SURGICAL BOOT APPLIED TO PATIENT, WILL CONTINUE MONITOR PATIENT, CALL LIGHT WITHIN REACH
--- NOTE | 2019-06-19 16:22 | NUR ---
CALLED [facility] WOUND VAC AT SPOKE TO ANNIE WAS GIVEN THE CONFIRMATION NUMBER [id number].
--- NOTE | 2019-06-19 19:55 | NUR ---
PATIENT A/OX4, NO S/S RESP DISTRESS, PATIENT 06/23 PAIN IN RIGHT LEG AFTER PAIN MED GIVEN, PATIENT GIVEN AND EDUCATED ON IS, SCU APPLIED TO LEFT LEG
--- NOTE | 2019-06-19 21:00 | NUR ---
PT RESTING IN BED, NO SIGNS OF DISTRESS NOTED, RESP EVEN AND UNLABORED. PT ALERT AND ORIENTED X3. DISCUSSED POC, RLE ELEVATED ON PILLOW, SCD'S IN PLACE. DRESSING CDI, WOUND VAC IN PLACE CONTINUOUS SUCTION 125MMGH. IS AT BEDSIDE PT DEMONSTRATED IT'S USE, TOTAL VOLUME 1000, INCREASED GOAL TO 1500ML, ASSESSMENT COMPLETED, CALL LIGHT IN REACH,CONTINUE TO MONITOR.
--- NOTE | 2019-06-19 23:22 | NUR ---
PT RESTING IN BED, C/O PAIN 01/23. PT MEDICATED PER JUN. CALL LIGHT IN REACH,CONTINUE TO MONITOR.
[2019-06-20] VITALS (7 sets, daily range): BP systolic 119–160; BP diastolic 47–79
--- NOTE | 2019-06-20 00:39 | NUR ---
IV LIZ INITIATED, PT VOICES NO NEEDS OR COMPLAINTS AT THIS TIME. CALL LIGHT IN REACH,CONTINUE TO MONITOR.
--- NOTE | 2019-06-20 04:14 | NUR ---
PT C/O PAIN 11/23, PT MEDICATED AT THIS TIME, CALL LIGHT IN REACH,CONTINUE TO MONITOR.
--- NOTE | 2019-06-20 07:30 | NUR ---
REPORT RECEIVED FROM YESSY CAREY. PT REPORTS MODERATE PAIN TO RIGHT FOOT, SURGICAL SITE. OXYCODONE ORDER AND SCHEDULE REVIEWED. PLAN OF CARE DISUCSSED. REPORTING OF CONCERNS ENCOURAGED. NWB STATUS TO RIGHT FOOT REINFORCED. PT STATES UNDERSTANDING. WOUD VAC TO RIGHT FOOT @ 125MMHG, NO LEAKS PRESENT. DRSG TO RIGHT FOOT CDI. INSPIRATORY WHEEZING AUSCULTATED IN ALL LUNG [place]. DENIES CP/SOB. REPORTS COUGH, PRODUCTIVE, BUT NOT VISUALIZED BY PT. INCENTIVE SPIROMETER USE ENCOURAGED. SCD TO LEFT LEG. DR. ESPINOSA AT BEDSIDE AT THIS TIME.
--- NOTE | 2019-06-20 08:30 | NUR ---
DR. ZABALA IN TO SEE PT. PLAN TO FOLLOW OUTPATIENT FOR WOUND CARE/WOUND VAC DISCUSSED. OXYCODONE PO ADMINISTERED AT THIS TIME FOR PAIN 6/ TO RIGHT FOOT. REPORTING OF FURTHER CONCERNS ENCOURAGED.
--- NOTE | 2019-06-20 10:39 | NUR ---
PT SLEEPING AT THIS TIME. AT BEDSIDE.
[2019-06-20] MEDS ORDERED: PERCOCET 5/325M1 TAB PO (13:44)
[2019-06-20] MEDS ORDERED: AMOX/K CLAV875 M1 PO (13:50)
[2019-06-20] MEDS ORDERED: LYPHOCIN1 GM IV (13:50)
--- NOTE | 2019-06-20 15:00 | NUR ---
YRN PICC LINE IN PLACE. DRSG CDI, NO SIGNS OF BLEEDING.
--- NOTE | 2019-06-20 15:12 | NUR ---
S: SORAYA GRAHAM is a 63 M who presents with cellulitis of right toe, ICD, atherosclerosis of [place] coronary artery, PVD, and peripheal arterial disease. He has a history of HTN, CAD, chronic CHF, T2DM, COPD/Emphysema, GI reflux, diabetic neuropathy, PVD. All medications in patient's chart were reviewed. O: VS: BP:160/79 mmHg, P:60 bpm, RR: 19 breaths/min, T: 97.9 F W: 76.005 kg, HT: 66inch, Scr= 0.5 ml/min,CrCl= 137.2 ml/min Trough was 10 mcg/ml on 06/18/2019 A: Preliminary wound culture shows staphylococcus aureus. P: Patient is on Zosyn 3.375 GM IV Q6H. Vancomycin ordered for pharmacy to dose. Start Vancomycin 1250mg IV Q12H. Vancomycin trough is drawn before the 4th dose on 06/21/2019 at 0930. Vancomycin goal trough is between <10-15 mcg/ml>. Pharmacy will follow and or advise on antibiotics use as needed.
--- NOTE | 2019-06-20 17:09 | NUR ---
WOUND VAC DELIVERED TO ROOM BY SONIA MARSHALL, BUDGET ENGINEER. IV ABX UNABLE TO BE DELIVERED TO PT'S HOME TONIGHT PER BONG, BUDGET ENGINEER. DR. DONAHUE NAD DR. ESPINOSA NOTIFIED. OK FOR DISCHARGE TO BE HELD UNTIL IV ABX FOR HOME TO BE IN PLACE.
--- NOTE | 2019-06-20 19:45 | NUR ---
PT. SITTING UP IN BED WATCHING TV WITH RIGHT FOOT ELEVATED ONTO PILLOW. DENIES NEEDS/PAIN. RUDDY WRAP WITH WOUND VAC IN PLACE TO RIGHT FOOT WITH CONTINUOUS SUCTION SET TO 125MM/HG, NO DRAINAGE NOTED TO CANISTER. SCD APPLIED TO LLE. UNABLE TO PALPATE RIGHT PEDAL PULSE DUE TO DRESSING TO RLE, STRONG POPLITEAL PULSE NOTED AND GOOD CAPILLARY REFILL NOTED. UPDATED ON POC AND VERBALIZES UNDERSTANDING. COFFEE PROVIDED PER REQUEST. PICC LINE TO YRN INTACT AND CIRCUMFERENCE IS 32.5CM TO INSERTION SITE. ENCOURAGED TO CALL FOR ANY NEEDS. CALL LIGHT IS IN REACH. WILL CONTINUE TO MONTIOR.
--- NOTE | 2019-06-20 22:24 | NUR ---
PT. C/O RIGHT FOOT PAIN 5/10 AND SLEEPLESSNESS AND MEDICATED WITH ORDERED PERCOCET AND SONATA. WILL REASSESS. PICC LINE NOTED WITH SMALL AMOUNT OF BLEEDING, ICE PACK APPLIED; WILL CONTINUE TO MONITOR.
--- NOTE | 2019-06-21 00:17 | NUR ---
PT. RESTING IN BED ON LEFT SIDE WITH NO DISTRESS NOTED; SLEEPING; AWAKEND AND ORDERED ZOSYN HUNG. NO INCREASE IN BLOOD NOTED TO PICC LINE DRESSING; WILL CONTINUE TO MONITOR; SITE FLUSHES WELL AND HAS GOOD BLOOD RETURN. PT. DENIES NEEDS. CALL LIGHT IS IN REACH.
--- NOTE | 2019-06-21 02:25 | NUR ---
RESTING IN BED WITH EYES CLOSED; RESP. EVEN AND UNLABORED. WOUND VAC REMAINS IN PLACE AND ON. CALL LIGHT IS IN REACH.
[2019-06-21 04:53] VITALS: BP 119/68
--- NOTE | 2019-06-21 06:01 | NUR ---
PT. MEDICATED WITH ORDERED PRN PERCOCET FOR PAIN, WILL REASSESS. COFFEE PROVIDED. WOUND VAC IN PLACE AND NO DRAINAGE NOTED TO CANISTER.
--- NOTE | 2019-06-21 06:30 | NUR ---
VANCO TROUGH OBTAINED.
--- NOTE | 2019-06-21 07:10 | NUR ---
BLOOD SUGAR 66 , OJ WITH SUGAR GIVEN WILL REASSESS
[2019-06-21 07:40] VITALS: BP 138/72
--- NOTE | 2019-06-21 07:40 | NUR ---
PT SITTING IN BED. A&O X3. NO DISTRESS NOTED. WOUND VAC IN PLACE SET 125 CONTINUOUS. SMALL AMOUNT OF SANGUINEOUS FLUID NOTED. NO PAIN AT THIS TIME. NO OTHER NEEDS AT THIS TIME. ASSESSMENT COMPLETED. DISCUSSED POC. CALL LIGHT IN REACH. CONTINUE TO MONITOR.
--- NOTE | 2019-06-21 10:15 | NUR ---
BLOOD SUGAR 188
[2019-06-21 11:00] VITALS: BP 144/77
--- NOTE | 2019-06-21 15:13 | NUR ---
D/C INSTRUCTIONS REVIEWED WITH PT. PICC LINE DRESSING CHANGED, PT TOLERATED WELL.
--- NOTE | 2019-06-21 15:41 | NUR ---
Discharge instructions given. Patient verbalizes understanding of same. Discharged in stable condition via wheelchair to home with [facility] home health accompanied by and staff. All belongings sent with pt.
--- NOTE | 2019-06-21 17:23 | NUR ---
I SPOKE WITH CHUCKY FROM [facility] WOUND VAC @[phone] TO HAVE THE WOUND VAC PICKED UP THAT WAS D/C FROM THIS PT TODAY. THE AIRAM NUMBER IS [id number] AND THE REFERANCE NUMBER IS [id number].
[2019-11-25] MEDS ORDERED: HYDROCODONE/ACE1 TAB PO (12:46)
== END 2019-06-21 15:38 | disposition home health service (06) | DRG 617 ==
LOC: ED 09:45 → ED-I 12:10 → ED 12:41 → MS2 12:42
PROVIDERS: Family Medicine; ADMIT Internal Medicine; ATTEND Internal Medicine
PROC: 0Y6M0ZF Detachment at Right Foot, Partial 5th Ray, Open Approach (ICD-10-PCS; principal; 2019-06-19)
PROC: 02HV33Z Insertion of Infusion Device into Superior Vena Cava, Percutaneous Approach (ICD-10-PCS; 2019-06-20)
PROC: B548ZZA Ultrasonography of Superior Vena Cava, Guidance (ICD-10-PCS; 2019-06-20)
DX: E11.69 Type 2 diabetes mellitus with other specified complication (principal); M86.8X7 Other osteomyelitis, ankle and foot; L03.115 Cellulitis of right lower limb; I50.22 Chronic systolic (congestive) heart failure; L97.416 Non-pressure chronic ulcer of right heel and midfoot with bone involvement without evidence of necrosis; E11.52 Type 2 diabetes mellitus with diabetic peripheral angiopathy with gangrene; E11.621 Type 2 diabetes mellitus with foot ulcer; E11.51 Type 2 diabetes mellitus with diabetic peripheral angiopathy without gangrene; E11.42 Type 2 diabetes mellitus with diabetic polyneuropathy; I11.0 Hypertensive heart disease with heart failure; I25.10 Atherosclerotic heart disease of native coronary artery without angina pectoris; J43.9 Emphysema, unspecified; K21.9 Gastro-esophageal reflux disease without esophagitis; F17.200 Nicotine dependence, unspecified, uncomplicated; I25.5 Ischemic cardiomyopathy; B95.61 Methicillin susceptible Staphylococcus aureus infection as the cause of diseases classified elsewhere; Z95.820 Peripheral vascular angioplasty status with implants and grafts; Z95.1 Presence of aortocoronary bypass graft; Z95.0 Presence of cardiac pacemaker; Z79.4 Long term (current) use of insulin; Z95.810 Presence of automatic (implantable) cardiac defibrillator; Z79.02 Long term (current) use of antithrombotics/antiplatelets; Z79.82 Long term (current) use of aspirin; L97.513 Non-pressure chronic ulcer of other part of right foot with necrosis of muscle; L97.514 Non-pressure chronic ulcer of other part of right foot with necrosis of bone; F17.208 Nicotine dependence, unspecified, with other nicotine-induced disorders
CPT/HCPCS: J3370

== ENCOUNTER 2019-06-22 | Emergency (ER) | payer MEDICARE, MEDICAID ==
[~2019-06-22] MED LIST changes: +AMOX/K CLAV875 M1 PO; +CARAFATE1 G1 PO; +LYPHOCIN1 GM IV; +PERCOCET 5/325M1 TAB PO
[2019-11-25] MEDS ORDERED: HYDROCODONE/ACE1 TAB PO (12:46)
== END 2019-06-22 11:47 | disposition home or self-care (01) ==
DX: T82.594A Other mechanical complication of infusion catheter, initial encounter (principal); J43.9 Emphysema, unspecified; I10 Essential (primary) hypertension; E11.51 Type 2 diabetes mellitus with diabetic peripheral angiopathy without gangrene; E11.42 Type 2 diabetes mellitus with diabetic polyneuropathy; I25.10 Atherosclerotic heart disease of native coronary artery without angina pectoris; F17.200 Nicotine dependence, unspecified, uncomplicated; Y83.8 Other surgical procedures as the cause of abnormal reaction of the patient, or of later complication, without mention of misadventure at the time of the procedure; Z79.4 Long term (current) use of insulin; Z95.1 Presence of aortocoronary bypass graft; Z95.0 Presence of cardiac pacemaker
CPT/HCPCS: J2997

== ENCOUNTER 2019-12-24 06:00 | Day surgery (SDC) | payer MEDICARE, MEDICAID ==
[~2019-12-24] VITALS: Ht 167.6 cm; Wt 77.1 kg
[~2019-12-24 06:00] MED LIST changes: +HYDROCODONE/ACE1 TAB PO
[2019-12-24 07:38] VITALS: BP 119/58
== END 2019-12-24 09:10 | disposition home or self-care (01) ==
LOC: ORM 06:00
PROVIDERS: ATTEND Anesthesiology Pain Medicine
DX: M70.72 Other bursitis of hip, left hip (principal); M76.32 Iliotibial band syndrome, left leg

== ENCOUNTER 2020-02-04 05:57 | Day surgery (SDC) | payer MEDICARE, MEDICAID ==
[~2020-02-04] VITALS: Ht 167.6 cm; Wt 73.5 kg
[2020-02-04 07:52] VITALS: BP 155/61
[2020-02-17] MEDS ORDERED: PERCOCET1 TA2 PO (13:07)
== END 2020-02-04 08:25 | disposition home or self-care (01) ==
LOC: ORM 05:57
PROVIDERS: ATTEND Anesthesiology Pain Medicine
DX: M12.9 Arthropathy, unspecified (principal); M53.87 Other specified dorsopathies, lumbosacral region; Z01.84 Encounter for antibody response examination

== ENCOUNTER 2020-03-31 06:20 | Day surgery (SDC) | payer MEDICARE, MEDICAID ==
[~2020-03-31] VITALS: Ht 167.6 cm; Wt 73.5 kg
[~2020-03-31 06:20] MED LIST changes: +PERCOCET1 TA2 PO
[2020-03-31 08:02] VITALS: BP 107/59
== END 2020-03-31 08:23 | disposition home or self-care (01) ==
LOC: ORM 06:20
PROVIDERS: ATTEND Anesthesiology Pain Medicine
DX: G57.02 Lesion of sciatic nerve, left lower limb (principal); Z01.84 Encounter for antibody response examination
CPT/HCPCS: Q9967

== ENCOUNTER 2021-02-26 23:45 | Emergency (ER) | payer MEDICARE, MEDICAID ==
[~2021-02-26] VITALS: Ht 167.6 cm; Wt 73.0 kg
[~2021-02-26 23:45] MED LIST changes: +OMEPRAZOLE DR40 MG PO; -OMEPRAZOLE10 MG PO
[2021-02-27 00:26] LABS: HEMATOCRIT 29.4 % (39.0-50.0); HEMOGLOBIN 9.1 g/dl (14.0-18.0); IMMATURE GRANULOCYTES 0.3 % (0.0-5.0); MEAN CELL VOLUME 85.2 fL CALC (80.0-100.0); MEAN CORPUSCULAR HGB 26.4 pG CALC (26.0-32.0); NEUT# 7.92 thou/uL (1.82-7.42); RED BLOOD COUNT 3.45 mill/uL (4.70-6.10); RED CELL DISTRI WIDTH 17.8 % (11.5-15.5)
[2021-02-27 00:39] LABS: INTERNATIONAL NORMALIZED RATIO 0.9 RATIO (0.7-1.3); PROTHROMBIN TIME 9.8 SECONDS (9.0-12.5)
[2021-02-27 00:44] LABS: ALBUMIN 3.5 g/dL (3.2-5.0); ALKALINE PHOSPHATASE 86 u/l (38-126); ANION GAP 17 (6-22 (CALC)); BILIRUBIN, TOTAL 0.3 mg/dL (0.0-1.4); BUN 24 mg/dL (8-23); BUN/CREATININE RATIO 30 (12-20 (CALC)); CARBON DIOXIDE 21 mmol/l (22-30); CHLORIDE 103 mmol/l (95-108); CREATININE 0.8 mg/dL (0.7-1.3); ETHYL ALCOHOL 67 mg/dl (0-30); GFR > 60 ML/MIN (>=60 (CALC)); GFR FOR AFR.AMER. > 60 ML/MIN (>=60 (CALC)); POTASSIUM 4.7 mmol/l (3.5-5.1); SGOT/AST 25 u/l (19-48); SODIUM 137 mmol/l (137-146); TOTAL PROTEIN 6.3 g/dL (6.3-8.2)
[2021-02-27 00:54] LABS: MYOGLOBIN 55 ng/mL (0 - 121)
[2021-02-27 01:45] VITALS: BP 105/57
== END 2021-02-27 01:46 ==
LOC: ED 23:45
PROVIDERS: Emergency Medicine
DX: K92.1 Melena (principal); D64.9 Anemia, unspecified; E87.2 Acidosis; F10.10 Alcohol abuse, uncomplicated; I10 Essential (primary) hypertension; E11.51 Type 2 diabetes mellitus with diabetic peripheral angiopathy without gangrene; E11.42 Type 2 diabetes mellitus with diabetic polyneuropathy; I25.10 Atherosclerotic heart disease of native coronary artery without angina pectoris; J43.9 Emphysema, unspecified; K21.9 Gastro-esophageal reflux disease without esophagitis; F17.210 Nicotine dependence, cigarettes, uncomplicated; Z79.4 Long term (current) use of insulin; Z79.84 Long term (current) use of oral hypoglycemic drugs; Z95.1 Presence of aortocoronary bypass graft; Z95.0 Presence of cardiac pacemaker; Z95.5 Presence of coronary angioplasty implant and graft
CPT/HCPCS: S0164

== ENCOUNTER 2021-11-20 21:09 | Emergency (ER) | payer MEDICARE, MEDICAID ==
[~2021-11-20] VITALS: Ht 167.6 cm; Wt 81.1 kg
[2021-11-20 22:19] LABS: HEMATOCRIT 37.8 % (39.0-50.0); HEMOGLOBIN 11.8 g/dl (14.0-18.0); IMMATURE GRANULOCYTES 0.4 % (0.0-5.0); MEAN CELL VOLUME 90.4 fL CALC (80.0-100.0); MEAN CORPUSCULAR HGB 28.2 pG CALC (26.0-32.0); MEAN CORPUSCULAR HGB CONC 31.2 g/dL CAL (32.0-36.0); NEUT# 7.64 thou/uL (1.82-7.42); RED BLOOD COUNT 4.18 mill/uL (4.70-6.10); RED CELL DISTRI WIDTH 18.3 % (11.5-15.5)
[2021-11-20 22:34] LABS: ALBUMIN 3.9 g/dL (3.2-5.0); ALKALINE PHOSPHATASE 113 u/l (38-126); ANION GAP 11 (6-22 (CALC)); BILIRUBIN, TOTAL 0.2 mg/dL (0.0-1.4); BUN 14 mg/dL (8-23); BUN/CREATININE RATIO 21 (12-20 (CALC)); CARBON DIOXIDE 28 mmol/l (22-30); CHLORIDE 103 mmol/l (95-108); CREATININE 0.7 mg/dL (0.7-1.3); GFR FOR AFR.AMER. > 60 ML/MIN (>=60 (CALC)); GFR OTHER RACES > 60 ML/MIN (>=60 (CALC)); POTASSIUM 3.8 mmol/l (3.5-5.1); SGOT/AST 26 u/l (19-48); SODIUM 138 mmol/l (137-146); TOTAL PROTEIN 7.1 g/dL (6.3-8.2)
[2021-11-20 22:45] LABS: MYOGLOBIN 43 ng/mL (0 - 121)
[2021-11-20 22:56] LABS: URINE BILIRUBIN - DIPSTICK NEGATIVE (NEGATIVE); URINE BLOOD DIPSTICK NEGATIVE (NEGATIVE); URINE COLOR YELLOW; URINE GLUCOSE - DIPSTICK NEGATIVE (NEGATIVE); URINE KETONE NEGATIVE (NEGATIVE); URINE LEUK ESTERASE NEGATIVE (NEGATIVE); URINE PROTEIN - DIPSTICK NEGATIVE (NEG-TRACE); URINE SPECIFIC GRAVITY <=1.005; URINE UROBILINOGEN - DIPSTICK 0.2 E.U./dL (0.2)
[2021-11-20 22:57] LABS: URINE NITRITE - DIPSTICK NEGATIVE (Negative)
[2021-11-21] MEDS ORDERED: CEPHALEXIN500 MG PO (00:47)
[2021-11-21] MEDS ORDERED: ROBITUSSIN AC10 ML PO (00:47)
[2021-11-21 03:49] VITALS: BP 134/72
== END 2021-11-21 04:14 | disposition home or self-care (01) ==
LOC: ED 21:09
PROVIDERS: Emergency Medicine
DX: E11.649 Type 2 diabetes mellitus with hypoglycemia without coma (principal); J06.9 Acute upper respiratory infection, unspecified; F10.10 Alcohol abuse, uncomplicated; I10 Essential (primary) hypertension; J43.9 Emphysema, unspecified; I25.10 Atherosclerotic heart disease of native coronary artery without angina pectoris; K21.9 Gastro-esophageal reflux disease without esophagitis; F17.200 Nicotine dependence, unspecified, uncomplicated; Z95.1 Presence of aortocoronary bypass graft; Z95.0 Presence of cardiac pacemaker; E11.42 Type 2 diabetes mellitus with diabetic polyneuropathy; E11.51 Type 2 diabetes mellitus with diabetic peripheral angiopathy without gangrene; Z79.4 Long term (current) use of insulin; Z79.84 Long term (current) use of oral hypoglycemic drugs; Z20.822 Contact with and (suspected) exposure to COVID-19

== ENCOUNTER 2022-11-28 16:44 | Inpatient (IN) | payer MEDICARE, MEDICAID ==
[~2022-11-28] VITALS: Ht 167.6 cm; Wt 78.5 kg
[~2022-11-28 16:44] MED LIST changes: +CEPHALEXIN500 MG PO; -LEVEMIR FL100 UNIT/M SC; +LEVEMIR100 UNIT SC; +ROBITUSSIN AC10 ML PO
[2022-11-28 17:31] LABS: BASO% 0.2 % (0-3); EOS% 0.7 % (0-8); IMMATURE GRANULOCYTES 0.3 % (0.0-5.0); LYMPH% 18.6 % (15-41); MEAN CELL VOLUME 82.5 fL CALC (80.0-100.0); MEAN CORPUSCULAR HGB 24.3 pG CALC (26.0-32.0); MEAN CORPUSCULAR HGB CONC 29.4 g/dL CAL (32.0-36.0); MONO% 8.7 % (2-13); NEUT# 6.9 thou/uL (1.82-7.42); NEUT% 71.5 % (42-76); RED BLOOD COUNT 4.12 mill/uL (4.70-6.10); RED CELL DISTRI WIDTH 17.4 % (11.5-15.5)
[2022-11-28 17:44] LABS: ALBUMIN 3.9 g/dL (3.2-5.0); ALKALINE PHOSPHATASE 117 u/l (38-126); ANION GAP 10 (6-22 (CALC)); BILIRUBIN, TOTAL 0.4 mg/dL (0.2-1.3); BUN 15 mg/dL (8-23); BUN/CREATININE RATIO 20 (12-20 (CALC)); CARBON DIOXIDE 31 mmol/l (22-30); CHLORIDE 104 mmol/l (95-108); CREATININE 0.7 mg/dL (0.7-1.3); GFR FOR AFR.AMER. > 60 ML/MIN (>=60 (CALC)); GFR OTHER RACES > 60 ML/MIN (>=60 (CALC)); POTASSIUM 4.8 mmol/l (3.5-5.1); SGOT/AST 42 u/l (19-48); SODIUM 140 mmol/l (137-146)
[2022-11-28 18:06] LABS: ACT PARTIAL THROMBO TIME 25.3 SECONDS (20.0-32.5); PROTHROMBIN TIME 9.9 SECONDS (9.0-12.5)
[2022-11-28 20:47] VITALS: BP 136/64
[2022-11-28 21:01] VITALS: BP 146/65
[2022-11-28 21:18] VITALS: BP 162/76
[2022-11-28 22:01] VITALS: BP 162/76
[2022-11-28 23:59] VITALS: BP 138/79
[2022-11-29 00:04] VITALS: BP 138/79
[2022-11-29 05:08] VITALS: BP 134/94
[2022-11-29 07:43] VITALS: BP 154/57
[2022-11-29 11:38] VITALS: BP 148/71
[2022-11-29 15:27] VITALS: BP 151/65
[2022-11-29 19:19] VITALS: BP 129/46
[2022-11-30 00:31] VITALS: BP 122/68
[2022-11-30 04:38] VITALS: BP 139/72
[2022-11-30 05:50] LABS: BASO% 0.2 % (0-3); HEMATOCRIT 29.9 % (39.0-50.0); HEMOGLOBIN 8.8 g/dl (14.0-18.0); IMMATURE GRANULOCYTES 0.2 % (0.0-5.0); LYMPH% 18.2 % (15-41); MEAN CELL VOLUME 83.1 fL CALC (80.0-100.0); MEAN CORPUSCULAR HGB 24.4 pG CALC (26.0-32.0); MEAN CORPUSCULAR HGB CONC 29.4 g/dL CAL (32.0-36.0); MONO% 8.3 % (2-13); NEUT# 7.23 thou/uL (1.82-7.42); NEUT% 72.1 % (42-76); RED BLOOD COUNT 3.6 mill/uL (4.70-6.10); RED CELL DISTRI WIDTH 17.3 % (11.5-15.5)
[2022-11-30 06:10] LABS: ALKALINE PHOSPHATASE 87 u/l (38-126); BILIRUBIN, TOTAL 0.3 mg/dL (0.2-1.3); BUN 11 mg/dL (8-23); BUN/CREATININE RATIO 19 (12-20 (CALC)); CARBON DIOXIDE 30 mmol/l (22-30); CHLORIDE 106 mmol/l (95-108); CREATININE 0.6 mg/dL (0.7-1.3); GFR FOR AFR.AMER. > 60 ML/MIN (>=60 (CALC)); GFR OTHER RACES > 60 ML/MIN (>=60 (CALC)); MAGNESIUM 1.6 mg/dL (1.6-2.3); SGOT/AST 32 u/l (19-48); SODIUM 137 mmol/l (137-146); TOTAL PROTEIN 5.9 g/dL (6.3-8.2)
[2022-11-30 06:12] LABS: ANION GAP 5 (6-22 (CALC))
[2022-11-30 06:20] VITALS: BP 133/59
[2022-11-30 06:23] LABS: ALBUMIN 3.1 g/dL (3.2-5.0)
[2022-11-30 11:01] VITALS: BP 136/58
== END 2022-11-30 12:45 | disposition short-term general hospital (02) | DRG 300 ==
LOC: ED 16:44 → ED-I 20:25 → ED 20:39 → MS2 20:39
PROVIDERS: Family Medicine; Nurse Practitioner Family; ADMIT Internal Medicine; ATTEND Internal Medicine
DX: E11.52 Type 2 diabetes mellitus with diabetic peripheral angiopathy with gangrene (principal); I50.22 Chronic systolic (congestive) heart failure; L03.116 Cellulitis of left lower limb; I70.261 Atherosclerosis of native arteries of extremities with gangrene, right leg; I11.0 Hypertensive heart disease with heart failure; E11.42 Type 2 diabetes mellitus with diabetic polyneuropathy; J43.9 Emphysema, unspecified; I25.10 Atherosclerotic heart disease of native coronary artery without angina pectoris; K21.9 Gastro-esophageal reflux disease without esophagitis; K22.70 Barrett's esophagus without dysplasia; S91.202A Unspecified open wound of left great toe with damage to nail, initial encounter; E11.65 Type 2 diabetes mellitus with hyperglycemia; I25.5 Ischemic cardiomyopathy; H91.90 Unspecified hearing loss, unspecified ear; F17.200 Nicotine dependence, unspecified, uncomplicated; X58.XXXA Exposure to other specified factors, initial encounter; Z79.4 Long term (current) use of insulin; Z95.1 Presence of aortocoronary bypass graft; Z79.84 Long term (current) use of oral hypoglycemic drugs; Z95.5 Presence of coronary angioplasty implant and graft; Z95.810 Presence of automatic (implantable) cardiac defibrillator; Z95.820 Peripheral vascular angioplasty status with implants and grafts; Z79.02 Long term (current) use of antithrombotics/antiplatelets; Z79.82 Long term (current) use of aspirin; Z89.421 Acquired absence of other right toe(s)
CPT/HCPCS: J1650; Q9967

== ENCOUNTER 2024-03-06 09:28 | Emergency (ER) | payer MEDICARE ==
[~2024-03-06] VITALS: Ht 167.6 cm; Wt 72.0 kg
[2024-03-06] VITALS (21 sets, daily range): BP systolic 116–140; BP diastolic 50–83
[2024-03-06] MEDS ORDERED: FLUORESCEIN SODIUM 1 MG EA OS ONE (09:55)
[2024-03-06] MEDS ORDERED: TETRACAINE HCL 0.5 %/4 ML SOL OS ONE (09:55)
[2024-03-06] MEDS ORDERED: Diph, Acellular Pertussis, Tet 0.5 ML/VIAL (Tdap) SDV IM ONE (10:05)
[2024-03-06] MEDS ORDERED: VANCOMYCIN HCL 1 GM in SODIUM CHLORIDE 0.9% 250 ML IV ONE (10:15)
[2024-03-06] MEDS ORDERED: cefTRIAXone SODIUM 2 GM in SODIUM CHLORIDE 0.9% 100 ML IV ONE (10:15)
[2024-03-06] MEDS ORDERED: MORPHINE SULFATE 4 MG/ML VIAL IV ONE ×2 (10:15→11:55)
[2024-03-06] MEDS ORDERED: ONDANSETRON HCl 4 MG/2 ML SDV IV ONE (10:15)
[2024-03-06 10:34] LABS: ALBUMIN 3.7 g/dL (3.2-5.0); BILIRUBIN, TOTAL 0.4 mg/dL (0.2-1.3); POTASSIUM 4.9 mmol/l (3.5-5.1); TOTAL PROTEIN 6.5 g/dL (6.3-8.2)
[2024-03-06 10:39] LABS: CREATININE 0.9 mg/dL (0.7-1.3)
[2024-03-06 10:40] LABS: BASO% 0.2 % (0-3); EOS% 0.8 % (0-8); HEMOGLOBIN 9.9 g/dl (14.0-18.0); IMMATURE GRANULOCYTES 0.4 % (0.0-5.0); LYMPH% 18.9 % (15-41); MEAN CELL VOLUME 78.8 fL CALC (80.0-100.0); MEAN CORPUSCULAR HGB 25.3 pG CALC (26.0-32.0); MEAN CORPUSCULAR HGB CONC 32.1 g/dL CAL (32.0-36.0); MONO% 8.7 % (2-13); NEUT# 5.89 thou/uL (1.82-7.42); RED BLOOD COUNT 3.91 mill/uL (4.70-6.10); RED CELL DISTRI WIDTH 23.8 % (11.5-15.5)
[2024-03-06 11:03] LABS: HEMATOCRIT 30.8 % (39.0-50.0)
[2024-03-06] MEDS ORDERED: SODIUM CHLORIDE 0.9% 1,000 ML IV ONE (11:25)
[2024-03-06] MEDS ORDERED: ERYTHROMYCIN OPTHALMIC 5 MG/GM TUBE OD ONE (13:35)
[2024-03-06] MEDS ORDERED: HYDROmorphone HCL 2 MG/AMP IV ONE (14:10)
== END 2024-03-06 14:54 | disposition short-term general hospital (02) ==
LOC: ED 09:28
PROVIDERS: Family Medicine
DX: S05.31XA Ocular laceration without prolapse or loss of intraocular tissue, right eye, initial encounter (principal); S05.11XA Contusion of eyeball and orbital tissues, right eye, initial encounter; I11.0 Hypertensive heart disease with heart failure; I50.9 Heart failure, unspecified; E11.42 Type 2 diabetes mellitus with diabetic polyneuropathy; E11.51 Type 2 diabetes mellitus with diabetic peripheral angiopathy without gangrene; I25.10 Atherosclerotic heart disease of native coronary artery without angina pectoris; J44.9 Chronic obstructive pulmonary disease, unspecified; H54.61 Unqualified visual loss, right eye, normal vision left eye; W18.30XA Fall on same level, unspecified, initial encounter; Z95.5 Presence of coronary angioplasty implant and graft; Z95.1 Presence of aortocoronary bypass graft; Z95.0 Presence of cardiac pacemaker; Z79.4 Long term (current) use of insulin; Z79.84 Long term (current) use of oral hypoglycemic drugs